=== PATIENT | male | born 1980 | race Hispanic/Latino ===

== ENCOUNTER 2017-07-10 04:47 | Emergency (ER) | payer SELFPAY ==
[2017-07-10] MEDS ORDERED: Mag-Al 1200 mg/1200 mg/30 ML UDCUP ONE (08:42)
[2017-07-10] MEDS ORDERED: Lidocaine Viscous Sol 2% 15 ml UD Cup ONE (08:42)
== END 2017-07-10 08:50 | disposition home or self-care (01) ==
LOC: ERS 04:47
DX: R10.13 Epigastric pain (principal); K21.9 Gastro-esophageal reflux disease without esophagitis; I10 Essential (primary) hypertension; Z79.899 Other long term (current) drug therapy
CPT/HCPCS: 99283

== ENCOUNTER 2017-07-11 00:05 | Emergency (ER) | payer SELFPAY ==
[2017-07-11] MEDS ORDERED: Famotidine 20 MG TAB ONE ×2 (01:34→03:02)
[2017-07-11] MEDS ORDERED: Mag-Al 1200 mg/1200 mg/30 ML UDCUP ONE (01:34)
[2017-07-11] MEDS ORDERED: Lidocaine Viscous Sol 2% 15 ml UD Cup ONE (01:34)
[2017-07-11] MEDS ORDERED: cloNIDine 0.1 MG TAB ONE ×2 (01:34→03:02)
[2017-07-11 01:55] LABS: #Basophils 0.1 thou/uL (0.0-0.2); #Eosinphils 0.3 thou/uL (0.0-0.7); #Lymphocytes 2.6 thou/uL (1.20-3.40); #Monocytes 0.9 thou/uL (0.11-0.59); #Neutrophils 3.1 thou/uL (1.40-6.50); %Basophils 1.3 % (0.0-1.0); %Eosinophils 4.9 % (0.0-10.0); %Lymphocytes 37.5 % (21.0-51.0); %Monocytes 12.7 % (0.0-10.0); %Neutrophils 43.7 % (42.0-75.0); Hemoglobin 16.1 g/dL (14.0-18.0); Mean Corpuscular HGB CONC 36.2 g/dL (32.0-36.0); Mean Corpuscular Hemoglobin 34.5 pg (27.0-31.0); Mean Corpuscular Volume 95.4 fl (80.0-94.0); Mean Platelet Volume 8.4 fL (7.4-10.4); Platelet Count 161 thou/uL (130-400); RBC Distribution Width 11.3 % (11.5-14.5); Red Blood Cell (RBC) Count 4.66 mill/uL (4.70-6.10)
[2017-07-11] MEDS ORDERED: Ondansetron ODT 4 MG TAB ONE (01:56)
[2017-07-11 02:17] LABS: ALT (SGPT) 95 U/L (8-55); AST (SGOT) 35 U/L (5-34); Albumin 4.3 g/dL (3.5-5.0); Alkaline Phosphatase 110 U/L (40-150); Anion Gap 12 mmol/L (10-20); BUN (Urea Nitrogen) 19 mg/dL (8.9-20.6); Bilirubin, Total 0.4 mg/dL (0.2-1.2); CK (CPK) 161 U/L (30-200); Calc. Creatinine Clearance 0 mL/min (70-130); Calcium 9.1 mg/dL (7.8-10.44); Carbon Dioxide 25 mmol/L (22-29); Chloride 105 mmol/L (98-107); Estimated GFR-MDRD 88; Glucose 133 mg/dL (70-105); Lipase 26 U/L (8-78); Potassium 3.9 mmol/L (3.5-5.1); Protein, Total 7.3 g/dL (6.0-8.3); Sodium 138 mmol/L (136-145)
[2017-07-11 02:36] LABS: CKMB 1.9 ng/mL (0-6.6); Troponin I Less than 0.010 ng/mL (< 0.028)
[2017-07-11] MEDS ORDERED: Promethazine HCl 25 MG/ML VIAL ONE (02:45)
[2017-07-11] MEDS ORDERED: Ketorolac Tromethamine 30 MG/ML VIAL ONE (04:31)
--- NOTE | 2017-07-11 08:36 | ULT ---
PRELIMINARY REPORT/[facility]/EMERGENTY AFTER-HOURS PROCEDURE US Abdomen Limited, Right Upper Quadrant CLINICAL HISTORY: 37 years old, male; Pain and signs and symptoms; Nausea and vomiting; Abdominal pain; Epigastric TECHNIQUE: Real-time ultrasound of the right upper quadrant with image documentation. COMPARISON: No relevant prior studies available. FINDINGS: Liver: Hepatic steatosis. Hepatopedal portal flow. Gallbladder: Non-mobile stone in the gallbladder neck. Normal wall thickness. Positive Ko sign re ported. Common bile duct: Unremarkable. No dilation. Pancreas: Obscured by bowel gas. Right kidney: Normal. IMPRESSION: Cholelithiasis. Normal gallbladder wall thickness. Hepatic steatosis. Thank you for allowing us to participate in the care of your patient. Dictated and Authenticated by: Cuate Smiley MD 07/11/2017 5:20 AM Central Time ([place] & [place]) FINAL REPORT SONOGRAM RIGHT UPPER QUADRANT PERFORMED ON AN EMERGENCY BASIS: Date: 07/11/17 Time: 0324 hours HISTORY: Right upper quadrant pain. FINDINGS/IMPRESSION: Findings agree with the preliminary report by [facility]. Gallstones are confirmed. No evidence of acute bi liary obstruction. Hepatic steatosis. POS: [facility]
--- NOTE | 2017-07-15 16:18 | EKG ---
Test Reason : Blood Pressure : / mmHG Vent. Rate : 080 BPM Atrial Rate : 080 BPM P-R Int : 134 ms QRS Dur : 102 ms QT Int : 382 ms P-R-T Axes : 051 -30 018 degrees QTc Int : 440 ms Normal sinus rhythm with sinus arrhythmia Left axis deviation Incomplete right bundle branch block Abnormal ECG Confirmed by GENE BILLINGS, LEANNE ([id number]), slot editor ADRI YOU ([id number]) on 07/15/2017 4:17:35 PM Referred By: Confirmed By:LEANNE MILLS MD
== END 2017-07-11 06:00 | disposition home or self-care (01) ==
LOC: ERS 00:05
DX: K80.20 Calculus of gallbladder without cholecystitis without obstruction (principal); K21.9 Gastro-esophageal reflux disease without esophagitis; I10 Essential (primary) hypertension; Z79.899 Other long term (current) drug therapy
CPT/HCPCS: 36415; 76705; 80053; 82550; 82553; 83690; 84484; 85025; 93005; 96365; 96375; J1885; J2550; Q0162

== ENCOUNTER 2017-10-02 02:11 | Emergency (ER) | payer OTHER, SELFPAY ==
[2017-10-02] MEDS ORDERED: Ondansetron HCl/PF 4 MG/2 ML Vial ONE (02:57)
[2017-10-02] MEDS ORDERED: Lidocaine Viscous Sol 2% 15 ml UD Cup ONE (02:58)
[2017-10-02] MEDS ORDERED: Sucralfate 1 GM/10 ML UDCUP ONE ×2 (02:58→03:14)
[2017-10-02] MEDS ORDERED: Mag-Al 1200 mg/1200 mg/30 ML UDCUP ONE (02:58)
[2017-10-02 03:22] LABS: #Basophils 0.1 thou/uL (0.0-0.2); #Eosinphils 0.1 thou/uL (0.0-0.7); #Lymphocytes 1.3 thou/uL (1.20-3.40); #Monocytes 0.3 thou/uL (0.11-0.59); #Neutrophils 6.1 thou/uL (1.40-6.50); %Basophils 0.6 % (0.0-1.0); %Eosinophils 1.2 % (0.0-10.0); %Lymphocytes 16.8 % (21.0-51.0); %Monocytes 4.2 % (0.0-10.0); %Neutrophils 77.2 % (42.0-75.0); Hemoglobin 17.7 g/dL (14.0-18.0); Mean Corpuscular HGB CONC 36.2 g/dL (32.0-36.0); Mean Corpuscular Hemoglobin 33.9 pg (27.0-31.0); Mean Corpuscular Volume 93.7 fL (78.0-98.0); Mean Platelet Volume 8.5 fL (7.4-10.4); Platelet Count 153 thou/uL (130-400); RBC Distribution Width 11.9 % (11.5-14.5); Red Blood Cell (RBC) Count 5.21 mill/uL (4.70-6.10); White Blood Cell (WBC) Count 7.9 thou/uL (4.8-10.8)
[2017-10-02 03:42] LABS: ALT (SGPT) 152 U/L (8-55); AST (SGOT) 65 U/L (5-34); Albumin 4.9 g/dL (3.5-5.0); Alkaline Phosphatase 115 U/L (40-150); Anion Gap 16 mmol/L (10-20); BUN (Urea Nitrogen) 12 mg/dL (8.9-20.6); Bilirubin, Total 0.6 mg/dL (0.2-1.2); Calc. Creatinine Clearance 0 mL/min (70-130); Calcium 9.9 mg/dL (7.8-10.44); Carbon Dioxide 26 mmol/L (22-29); Chloride 102 mmol/L (98-107); Estimated GFR-MDRD Greater than 90; Globulin 3.2 g/dL (2.4-3.5); Glucose 151 mg/dL (70-105); Lipase 11 U/L (8-78); Protein, Total 8.1 g/dL (6.0-8.3); Sodium 140 mmol/L (136-145)
[2017-10-02] MEDS ORDERED: hydrALAZINE 20 MG/ML VIAL ONE (04:34)
[2017-10-02] MEDS ORDERED: Labetalol HCl 100 MG/20 ML VIAL ONE (05:30)
[2017-10-02] MEDS ORDERED: Morphine 4 MG/ML VIAL ONE (05:30)
--- NOTE | 2017-10-02 09:00 | RAD ---
CHEST 1 VIEW AND ABDOMEN 2 VIEWS: Date: 10/02/17 HISTORY: Abdominal pain, nausea, and vomiting. FINDINGS/IMPRESSION: The heart size is normal. The lungs show no evidence of lobar consolidation, pneumothoraces, or pleur al effusions. No free air or differential fluid levels are seen. The bowel gas pattern is unremarkabl e. No suspicious calcifications are seen. POS: [facility]
== END 2017-10-02 05:47 | disposition home or self-care (01) ==
LOC: ERS 02:11
DX: K29.70 Gastritis, unspecified, without bleeding (principal); K21.9 Gastro-esophageal reflux disease without esophagitis; Z79.899 Other long term (current) drug therapy; I10 Essential (primary) hypertension
CPT/HCPCS: 74022; 80053; 83690; 85025; 96361; 96374; 96375; 96376; J0360; J2270; J2405

== ENCOUNTER 2020-02-10 21:17 | Emergency (ER) | payer SELFPAY ==
[~2020-02-10 21:17] MED LIST: Iopamidol-370 76% 500 ML 1 ML ONE
[2020-02-10 21:51] LABS: #Basophils 0.1 thou/uL (0.0-0.2); #Eosinphils 0.8 thou/uL (0.0-0.7); #Lymphocytes 3.1 thou/uL (1.20-3.40); #Monocytes 0.9 thou/uL (0.11-0.59); #Neutrophils 3.9 thou/uL (1.40-6.50); %Basophils 1.5 % (0.0-1.0); %Eosinophils 8.7 % (0.0-10.0); %Monocytes 9.8 % (0.0-10.0); Hemoglobin 17.7 g/dL (14.0-18.0); Mean Corpuscular HGB CONC 34.1 g/dL (32.0-36.0); Mean Corpuscular Hemoglobin 32.9 pg (27.0-31.0); Mean Corpuscular Volume 96.5 fL (78.0-98.0); Mean Platelet Volume 9.5 fL (7.4-10.4); Platelet Count 189 thou/uL (130-400); RBC Distribution Width 11.4 % (11.5-14.5); Red Blood Cell (RBC) Count 5.38 mill/uL (4.70-6.10); White Blood Cell (WBC) Count 8.7 thou/uL (4.8-10.8)
[2020-02-10 22:22] LABS: ALT (SGPT) 80 U/L (8-55); AST (SGOT) 45 U/L (5-34); Albumin 4.2 g/dL (3.5-5.0); Alkaline Phosphatase 130 U/L (40-110); Anion Gap 14 mmol/L (10-20); BUN (Urea Nitrogen) 13 mg/dL (8.9-20.6); Bilirubin, Total 0.4 mg/dL (0.2-1.2); Calc. Creatinine Clearance 0 mL/min (70-130); Calcium 8.7 mg/dL (7.8-10.44); Carbon Dioxide 27 mmol/L (22-29); Chloride 102 mmol/L (98-107); Globulin 3.3 g/dL (2.4-3.5); Glucose 143 mg/dL (70-105); Lipase 28 U/L (8-78); Potassium 4.3 mmol/L (3.5-5.1); Protein, Total 7.5 g/dL (6.0-8.3); Sodium 139 mmol/L (136-145)
[2020-02-10 22:42] LABS: Bilirubin Negative (Negative); Blood, Urine Negative (Negative); Clarity Clear (Clear); Glucose, Urine (Dipstick) Normal (Negative); Ketone, Urine Negative (Negative); Leukocyte Negative Leu/uL (Negative); Nitrite Negative (Negative); Protein, Urine (Dipstick) Negative (Neg-Trace); Specific Gravity, Urine 1.022 (1.002-1.036); Urobilinogen Normal mg/dL (Less than 2); pH, Urine 6.5 (5.0-9.0)
[2020-02-11] MEDS ORDERED: Lidocaine Viscous Sol 2% 15 ml UD Cup ONE (00:58)
[2020-02-11] MEDS ORDERED: Mag-Al 1200 mg/1200 mg/30 ML UDCUP ONE (00:58)
--- NOTE | 2020-02-11 07:47 | CT ---
PRELIMINARY REPORT/[facility]/EMERGENCY AFTER HOURS PROCEDURE EXAM: CT Abdomen and Pelvis with Intravenous Contrast CLINICAL HISTORY: ABD PAIN THAT STARTED YESTERDAY. VOMITED 2 TIMES. TENDER DIFFUSELY. TECHNIQUE: Axial computed tomography images of the abdomen and pelvis with intravenous contrast. CONTRAST: With; ISOVUE 370,100mL COMPARISON: None provided. FINDINGS: LUNG BASES: No basilar airspace consolidation or pleural effusion. LIVER: Mild fatty infiltration. GALLBLADDER AND BILE DUCTS: 1.7 cm gallstone. No gross inflammation. PANCREAS: Unremarkable. SPLEEN: Unremarkable. ADRENAL GLANDS: Unremarkable. KIDNEYS, URETERS, AND BLADDER: Unremarkable. No hydronephrosis or nephrolithiasis. No ureteral or bladder calculi. STOMACH AND BOWEL: No obstruction. No wall thickening. No CT evidence of colitis or acute diverticulitis. APPENDIX: Appendix is within normal limits. PERITONEUM: No free fluid. No free air. LYMPH NODES: No lymphadenopathy. REPRODUCTIVE: Unremarkable as visualized. VASCULATURE: No aortic aneurysm. BONES: No fracture or suspicious osseous abnormality. ABDOMINAL WALL AND SOFT TISSUES: Unremarkable. IMPRESSION: Cholelithiasis. No gross inflammation. If patient has Ko sign, followup ultrasound could be perfo rmed. ELECTRONICALLY SIGNED BY: Mary Sheldon MD Feb 11, 2020 1:06:15 AM PROVIDER RELATIONS SPECIALIST This report is intended for review by the ordering physician only, in accordance of law. If you recei ve this report in error, please call [facility] at [phone]. FINAL REPORT CT Abdomen Pelvis W Con History: Abdominal pain Comparison: Radiograph 2018 Findings/Impression: Concordant with the preliminary report. Transcribed Date/Time: 02/11/2020 7:51 AM
== END 2020-02-11 01:35 | disposition home or self-care (01) ==
LOC: ERS 21:17
DX: R10.13 Epigastric pain (principal); R11.2 Nausea with vomiting, unspecified; I10 Essential (primary) hypertension; K21.9 Gastro-esophageal reflux disease without esophagitis; F17.210 Nicotine dependence, cigarettes, uncomplicated; Z79.899 Other long term (current) drug therapy
CPT/HCPCS: 36415; 74177; 80053; 81003; 83690; 85025; Q9967

== ENCOUNTER 2020-07-10 20:07 | Observation (INO) | payer SELFPAY ==
[2020-07-10] MEDS ORDERED: Famotidine 20 MG TAB ONE (20:39)
[2020-07-10 20:54] LABS: #Basophils 0.1 thou/uL (0.0-0.2); #Eosinphils 0.6 thou/uL (0.0-0.7); #Lymphocytes 2.1 thou/uL (1.20-3.40); #Monocytes 0.6 thou/uL (0.11-0.59); #Neutrophils 3.5 thou/uL (1.40-6.50); %Basophils 1.7 % (0.0-1.0); %Eosinophils 8.1 % (0.0-10.0); %Lymphocytes 30.4 % (21.0-51.0); %Monocytes 8.3 % (0.0-10.0); %Neutrophils 51.4 % (42.0-75.0); Hemoglobin 17.4 g/dL (14.0-18.0); Mean Corpuscular HGB CONC 34.1 g/dL (32.0-36.0); Mean Corpuscular Hemoglobin 33.7 pg (27.0-31.0); Mean Corpuscular Volume 98.7 fL (78.0-98.0); Mean Platelet Volume 9.1 fL (7.4-10.4); Platelet Count 179 thou/uL (130-400); RBC Distribution Width 11.5 % (11.5-14.5); Red Blood Cell (RBC) Count 5.16 mill/uL (4.70-6.10); White Blood Cell (WBC) Count 6.9 thou/uL (4.8-10.8)
[2020-07-10 20:56] LABS: Bilirubin Negative (Negative); Blood, Urine Negative (Negative); Clarity Clear (Clear); Glucose, Urine (Dipstick) Normal (Negative); Ketone, Urine Negative (Negative); Leukocyte Negative Leu/uL (Negative); Nitrite Negative (Negative); Protein, Urine (Dipstick) Negative (Neg-Trace); Specific Gravity, Urine 1.024 (1.002-1.036); Urobilinogen Normal mg/dL (Less than 2); pH, Urine 6.5 (5.0-9.0)
[2020-07-10 21:15] LABS: ALT (SGPT) 104 U/L (8-55); AST (SGOT) 59 U/L (5-34); Albumin 4.2 g/dL (3.5-5.0); Alkaline Phosphatase 148 U/L (40-110); Anion Gap 14 mmol/L (10-20); BUN (Urea Nitrogen) 10 mg/dL (8.9-20.6); Bilirubin, Total 0.4 mg/dL (0.2-1.2); Calc. Creatinine Clearance 0 mL/min (70-130); Calcium 9.2 mg/dL (7.8-10.44); Carbon Dioxide 28 mmol/L (22-29); Chloride 103 mmol/L (98-107); Globulin 3.2 g/dL (2.4-3.5); Glucose 124 mg/dL (70-105); Lipase 22 U/L (8-78); Potassium 4.9 mmol/L (3.5-5.1); Protein, Total 7.4 g/dL (6.0-8.3); Sodium 140 mmol/L (136-145)
[2020-07-10] MEDS ORDERED: Morphine 4 MG/ML VIAL ONE (21:58)
[2020-07-10] MEDS ORDERED: Morphine 4 MG/ML VIAL SLOW IVP PRN (23:12)
[2020-07-10] MEDS ORDERED: Ondansetron ODT 4 MG TAB SL PRN (23:15)
[2020-07-10] MEDS ORDERED: Ondansetron PF 4 MG/2 ML Vial IVP PRN (23:15)
[2020-07-10 23:46] VITALS: BMI 26.4
[2020-07-11] MEDS: Sodium Chloride 0.9% 1,000 ML IV SCH ×2 (00:15→07:00)
[2020-07-11 02:16] LABS: SARS-CoV-2 NAA Rapid Test Not Detected (NotDetected)
[2020-07-11] MEDS ORDERED: Bupivacaine 0.25% HCL 30 ML VIAL ONE (13:49)
[2020-07-11] MEDS ORDERED: Lidocaine 1% w/Epinephrine 1:100K 20 ML VIAL ONE (13:49)
[2020-07-11] MEDS ORDERED: Fentanyl 100 MCG/2 ML VIAL ONE (13:58)
[2020-07-11] MEDS ORDERED: Midazolam HCl 2 mg/2 ml Vial ONE (13:58)
[2020-07-11] MEDS ORDERED: Glycopyrrolate 0.2 MG/ML 5 ML SYRINGE ONE (14:38)
[2020-07-11] MEDS ORDERED: Lidocaine 1% PF 5 ML VIAL ONE (14:38)
[2020-07-11] MEDS ORDERED: Dexamethasone 20 MG/5 ML VIAL ONE (14:38)
[2020-07-11] MEDS ORDERED: Rocuronium Bromide 10 MG/ML (10ML VIAL) ONE (14:38)
[2020-07-11] MEDS ORDERED: PROPOFOL 200 MG/20 ML VIAL ONE (14:38)
[2020-07-11] MEDS ORDERED: Ketorolac Tromethamine 30 MG/ML VIAL ONE (14:38)
[2020-07-11] MEDS ORDERED: Ondansetron PF 4 MG/2 ML Vial ONE (14:38)
[2020-07-11 17:49] VITALS: BP 129/81; TEMP 97.6
== END 2020-07-11 18:31 | disposition home or self-care (01) ==
LOC: ERS 20:07 → SJJU 21:55
PROVIDERS: ADMIT Specialist; ATTEND Specialist
PROC: 0FT44ZZ Resection of Gallbladder, Percutaneous Endoscopic Approach (ICD-10-PCS; principal; 2020-07-11)
DX: K80.12 Calculus of gallbladder with acute and chronic cholecystitis without obstruction (principal); K76.0 Fatty (change of) liver, not elsewhere classified; I10 Essential (primary) hypertension; K21.9 Gastro-esophageal reflux disease without esophagitis; F17.210 Nicotine dependence, cigarettes, uncomplicated; Z79.899 Other long term (current) drug therapy; Z20.822 Contact with and (suspected) exposure to COVID-19
CPT/HCPCS: 36415; 76705; 80053; 81003; 83690; 85025; 88304; 94760; 96374; G0378; J0690; J1100; J1885; J2250; J2270; J2405; J2704; J3010; S0020; U0002

== ENCOUNTER 2020-10-18 15:55 | Emergency (ER) | payer SELFPAY | END 2020-10-18 16:52 | disposition home or self-care (01) | LOC: ERS 15:55 | DX: S90.464A Insect bite (nonvenomous), right lesser toe(s), initial encounter (principal); K21.9 Gastro-esophageal reflux disease without esophagitis; I10 Essential (primary) hypertension; F17.210 Nicotine dependence, cigarettes, uncomplicated; Z79.899 Other long term (current) drug therapy; W57.XXXA Bitten or stung by nonvenomous insect and other nonvenomous arthropods, initial encounter | CPT/HCPCS: 99282 ==